=== PATIENT | male | born 1950 | race Caucasian/White ===

== ENCOUNTER 2019-11-10 11:07 | Emergency (ER) | payer MEDICARE, BC ==
--- NOTE | 2019-11-10 11:15 | EDM.PDOC ---
ED HPI GENERAL MEDICAL PROBLEM - General Chief Complaint: Head Injury Stated Complaint: possible concussion Time Seen by Provider: 11/10/19 11:07 Source of Information: Reports: Patient, Family (Sister), Other ([facility]). Denies: Old Records ([facility] EMR. No paper hospital chart available.) History Limitations: Reports: No Limitations - History of Present Illness INITIAL COMMENTS - FREE TEXT/NARRATIVE: Patient was brought to the emergency room via private automobile by his sister for evaluation of a possible head concussion. Note the patient was visiting his parents yesterday with the patient coming back from the bathroom at about 06:30 a.m. this morning. The lights were off and he tried to crawl onto his bed and accidentally hit the top of his head on the bedroom wall. No history of fall, although he has had some nonspecific dizziness, nausea, and 3 episodes of dry heaves this morning. The patient tried to take his medications this morning, however he had an emesis shortly thereafter. He denies any loss of consciousness , change in mental status, visual changes, change in his neurological status, or other complaints or injuries. He does have a cerebral neurostimulator secondary to his Parkinson's disease with the family concerned of a possible significant injury. The patient denies any chest pain/pressure, heart flutter, orthostasis, orthopnea, diaphoresis, paresthesias, recent decreased exercise tolerance, or any other anginal-type symptoms. No recent history of abdominal pain, heartburn, nausea, diarrhea, melena, gross hematochezia, or any food intolerance, including fatty foods, etc.. He denies any gross hematuria, colic, or other UTI symptoms. The patient also denies any recent fever, cough, wheezing , dyspnea, etc.. He complains of 1/10 superior head discomfort. Onset: Today, Sudden Onset Date: 11/10/19 Onset Time: 06:30 Duration: Improving Location: Reports: Head. Denies: Face, Neck, Chest, Abdomen, Back, Pelvis, Upper Extremity, Left, Upper Extremity, Right, Lower Extremity, Left, Lower Extremity, Right, Radiates to Quality: Reports: Ache, Same as Previous Episode Severity: Mild Improves with: Reports: None Worsens with: Reports: None Context: Reports: Trauma (As above). Denies: Sick Contact Associated Symptoms: Reports: Nausea/Vomiting. Denies: Confusion, Chest Pain, Cough, Diaphoresis, Fever/Chills, Headaches, Loss of Appetite, Malaise, Seizure , Shortness of Breath, Syncope, Weakness Treatments COMMUNITY OUTREACH SPECIALIST: Reports: Other (see below) (None) Head Pain Score (Numeric/FACES): 1 - Related Data Allergies Allergy/AdvReac Type Severity Reaction Status Date / Time adhesive tape Allergy Rash Verified 11/10/19 11:22 Home Meds: Home Meds Aspirin 81 mg PO BEDTIME 11/10/19 [History] Carbidopa/Levodopa [Sinemet 25-100 mg Tablet] 1 tab PO TID 11/10/19 [History] Ipratropium [Atrovent 0.06% Nasal [place]] 2 inh NASBOTH TID 11/10/19 [History] Meclizine [Antivert] 25 mg PO Q6H PRN #30 tab.chew 11/10/19 [Rx] Mirtazapine 30 mg PO BEDTIME 11/10/19 [History] Multivitamin with Minerals [Multiple Vitamin] 1 tab PO DAILY 11/10/19 [History] Rasagiline Mesylate 1 mg PO DAILY 11/10/19 [History] Simvastatin 40 mg PO DAILY 11/10/19 [History] Trihexyphenidyl [Artane] 2 mg PO TID 11/10/19 [History] allopurinoL [Zyloprim] 150 mg PO BID 11/10/19 [History] Past Medical History HEENT History: Reports: Impaired Vision, Other (See Below) Other HEENT History: Patient wears glasses. Cardiovascular History: Reports: Arrhythmia, High Cholesterol, Other (See Below) Other Cardiovascular History: Dyslipidemia. PACs, PVCs, with additional bigeminy , trigeminy, quadrigeminy. Respiratory History: Reports: COPD, Intubation, Previous, Sleep Apnea. Denies: Intubation, Difficult Gastrointestinal History: Reports: GERD, Other (See Below) Other Gastrointestinal History: Benign hepatic cyst. Genitourinary History: Reports: BPH Musculoskeletal History: Reports: Arthritis, Gout, Osteoarthritis Neurological History: Reports: Parkinson's, Other (See Below) Other Neuro History: Cognitive impairment. Right foot plantar neuroma in 2017. Endocrine/Metabolic History: Reports: Obesity/BMI 30+ - Past Surgical History Head Surgeries/Procedures: Reports: Other (See Below) Other Head Surgeries/Procedures: Placement of a deep brain stimulator on with battery replacement on 09/15/17 and 04/12/15. HEENT Surgical History: Reports: Oral Surgery (Teeth extractions) GI Surgical History: Reports: Colonoscopy, EGD, Hernia Repair/Other, Other (See Below) Other GI Surgeries/Procedures: Unknown hernia repair on 03/16/12. Colonoscopy on 06/04/12. EGD on 12/28/12 with apparent previous procedure. Neurological Surgical History: Reports: Other (See Below) Other Neurological Surgeries/Procedures: EMG with multiple chemo-denervations on 07/28/18. - Past Imaging History Past Imaging History: Reports: Cardiac Echo (Normal echocardiogram on 01/26/18 with ejection fraction of 60%.), CAT Scan (CT of the abdomen and pelvis on .), Holter Monitor (Positive Holter monitor study on 12/14/17 with results as above.), Sleep Study (Positive sleep study on 11/17/17.), Swallow Study ( Negative swallowing study on 05/05/18 with previous esophagram on 12/08/12.), Other (See Below) (EMG on 07/28/18.) Social & Family History - Tobacco Use Smoking Status *Q: Never Smoker Tobacco Use Within Last Twelve Months: No Used Tobacco, but Quit: No Smoking Cessation Information Provided To Patient: No Second Hand Smoke Exposure: No Second Hand Smoke Education Provided: No - Living Situation & Occupation Living situation: Reports: Alone ED ROS GENERAL - Review of Systems Review Of Systems: Comprehensive ROS is negative, except as noted in HPI. ED EXAM, HEAD INJURY - Physical Exam Exam: See Below Exam Limited By: No Limitations General Appearance: Alert, WD/WN, No Apparent Distress, Anxious (Moderate) Head: Normocephalic, Other (Stable by history postoperative skull deformity in the anterior frontal region with no evidence of acute injury, swelling, etc. Only equivocal minimal anterior mid parietal tenderness). No: Scalp Abrasions, Scalp Ecchymosis, Rubio's Sign, Sinus Tenderness, Facial Tenderness, Raccoon Eyes Nexus Criteria: No: Posterior, Midline Cervical Tenderness, Evidence of Intoxication, Altered Level of Consciousness, Focal Neurological Deficit, Painful Distraction Injuries Eyes: Bilateral Eye: EOMI, Normal Fundi, Normal Inspection (Wearing glasses, no nystagmus), PERRL Ears: Normal External Exam, Normal Canal, Hearing Grossly Normal, Normal TMs Nose: Normal Inspection, Normal Mucousa, No Blood Throat/Mouth: Normal Inspection, Normal Lips, Normal Teeth, Normal Gums, Normal Oropharynx, Normal Voice, No Airway Compromise Neck: Non-Tender, Full Range of Motion, Normal Alignment, Normal Inspection Respiratory: No Respiratory Distress, Lungs Clear, Normal Breath Sounds, No Accessory Muscle Use, Chest Non-Tender. No: Pleural Rub, Retractions Cardiovascular: Normal Peripheral Pulses, No Edema, No Gallop, No JVD, No Murmur , No Rub, Extra Beats (Regular rate). No: Gallop/S3, Gallop/S4, Friction Rub GI/Abdominal Exam: Normal Bowel Sounds, Soft, Non-Tender, No Organomegaly, No Distention, No Abnormal Bruit, No Mass, Pelvis Stable. No: Guarding (Male) Exam: Deferred Rectal (Males) Exam: Deferred Back Exam: Normal Inspection, Full Range of Motion. No: CVA Tenderness (L), CVA Tenderness (R), Muscle Spasm Extremities: Normal Inspection, Normal Range of Motion, Non-Tender, No Pedal Edema, Normal Capillary Refill. No: Niru's Sign Neurologic: production welding supervisor II-XII nml As Tested, Alert, Oriented x 3, Other (Negative Babinski's, finger to nose, and pronator rotation tests. No evidence of facial paresis, tongue deviation, orthostasis, etc.. Excellent reverse thought processes. Stable by patient and his sister's history mild cognitive defect and stable moderate resting tremor, rigidity, and cogwheeling). No: Normal Mood/ Affect (Moderate anxiety with borderline depression) Skin: Normal Color, Warm/Dry. No: Ecchymosis - Edmond Coma Score Best Eye Response (Nini): (4) Open Spontaneously Best Verbal Response (Edmond): (5) Oriented Best Motor Response (Edmond): (6) Obeys Commands Edmond Total: 15 Course - Vital Signs Last Recorded V/S: Last Vital Signs Temp 36.6 C 11/10/19 11:14 Pulse 73 11/10/19 12:19 Resp 19 11/10/19 12:19 BP 145/76 H 11/10/19 12:19 Pulse Ox 91 L 11/10/19 12:19 - Orders/Labs/Meds Orders: Active Orders 24 hr Category Date Time Status Cardiac Monitoring [RC] . DIRECTED Care 11/10/19 11:46 Active Peripheral IV Care [RC] . DIRECTED Care 11/10/19 11:35 Active Head wo Cont [CT] Stat Exams 11/10/19 11:17 Taken Obtain Past Medical Record [OM.PC] Routine Oth 11/10/19 11:17 Active Peripheral IV Insertion Adult [OM.PC] Routine Oth 11/10/19 11:35 Ordered Meds: Medications Discontinued Medications Generic Name Dose Route Start Last Admin Trade Name Freq PRN Reason Stop Dose Admin Ondansetron HCl 4 mg 11/10/19 11:35 11/10/19 11:44 Zofran IVPUSH 11/10/19 11:36 4 mg ONETIME ONE Administration Ondansetron HCl 4 mg 11/10/19 12:07 11/10/19 12:09 Zofran IVPUSH 11/10/19 12:08 4 mg ONETIME ONE Administration Sodium Chloride 10 ml 11/10/19 11:35 11/10/19 12:09 Saline Flush FLUSH 10 ml ASDIRECTED PRN Administration Keep Vein Open - Radiology Interpretation Free Text/Narrative:: shank burnisher shows normal sinus rhythm with only occasional PACs with aberrant conduction. Telephone consultation at 11:54 hours with preliminary verbal report of CT scan of the head without contrast. No acute changes including fracture, CVA, etc. CT Results Date: 11/10/19 CT Results Time: 11:54 Departure - Departure Time of Disposition: 12:40 Disposition: Home, Self-Care 01 Condition: Good Clinical Impression: Parkinsons disease, PAC (premature atrial contraction), Mixed anxiety depressive disorder Concussion Qualifiers: Encounter type: initial encounter Loss of consciousness presence/duration: without LOC Qualified Code(s): S06.0X0A - Concussion without loss of consciousness, initial encounter Hyperlipidemia Qualifiers: Hyperlipidemia type: unspecified Qualified Code(s): E78.5 - Hyperlipidemia, unspecified Osteoarthritis Qualifiers: Osteoarthritis location: multiple joints Osteoarthritis type: primary Qualified Code(s): M15.0 - Primary generalized (osteo)arthritis COPD (chronic obstructive pulmonary disease) Qualifiers: COPD type: emphysema Emphysema type: panlobular Qualified Code(s): J43.1 - Panlobular emphysema - Discharge Information *PRESCRIPTION DRUG MONITORING PROGRAM REVIEWED*: Not Applicable *COPY OF PRESCRIPTION DRUG MONITORING REPORT IN PATIENT FRACISCO: Not Applicable Prescriptions: Meclizine [Antivert] 25 mg PO Q6H PRN #30 tab.chew PRN Reason: Dizziness Instructions: Concussion, Adult, [id number] Referrals: Melissa York MD [Primary Care Provider] - Forms: ED Department Discharge Additional Instructions: 1. Follow up with your regular provider in 10-14 days as needed, if symptoms persist. Bring these discharge instructions with you to that visit.. 2. Head precautions as directed-see form. 3. Continue to observe your blood pressures closely by your regular provider 4. Activity as tolerated with strict fall precautions, including regular walker use 5. Immediately after this visit verify that your cellular telephone's voicemail has been activated and is empty. Also verify that your home telephone 's answering machine is operating properly and has space to receive messages. Note that it is sometimes necessary for us to be able to contact you at a later date to discuss your medical care. 6. Please remember that we are ALWAYS here for you and want to answer any questions you may have. Feel free to call the hospital any time and we call you back NEL[place]. 7. Sedation precautions with meclizine as discussed. Sepsis Event Note - Focused Exam Vital Signs: Vital Signs Temp Pulse Resp BP Pulse Ox 11/10/19 12:19 73 19 145/76 H 91 L 11/10/19 11:57 74 18 138/64 91 L 11/10/19 11:28 72 163/70 H 94 L 11/10/19 11:14 36.6 C 66 20 162/82 H 95 Date Exam was Performed: 11/10/19 Time Exam was Performed: 15:58 - Problem List & Annotations (1) Concussion SNOMED Code(s): 927973430 Code(s): S06.0X9A - CONCUSSION W LOSS OF CONSCIOUSNESS OF UNSP DURATION, INIT Status: Acute Priority: High Onset Date: 11/10/19 Annotation/ Comment:: Note mild persistent dizziness prior to discharge despite 2 doses of Zofran in the emergency room. Neurological exam is normal with exception of his Parkinson's disease. Head precautions given. Sedation precautions were given concerning possible further when necessary meclizine use. Close follow-up of his blood pressures and neurological status by his regular providers in [place] with patient living in [place]. Qualifiers: Encounter type: initial encounter Loss of consciousness presence/duration: without LOC Qualified Code(s): S06.0X0A - Concussion without loss of consciousness, initial encounter (2) COPD (chronic obstructive pulmonary disease) SNOMED Code(s): 27823312 Code(s): J44.9 - CHRONIC OBSTRUCTIVE PULMONARY DISEASE, UNSPECIFIED Status : Chronic Priority: Medium Annotation/Comment:: No recent fever or bronchitic type symptoms. Note history of sleep apnea. Qualifiers: COPD type: emphysema Emphysema type: panlobular Qualified Code(s): J43.1 - Panlobular emphysema (3) Hyperlipidemia SNOMED Code(s): 36098995 Code(s): E78.5 - HYPERLIPIDEMIA, UNSPECIFIED Status: Chronic Priority: Medium Annotation/Comment:: Currently under therapy. Qualifiers: Hyperlipidemia type: unspecified Qualified Code(s): E78.5 - Hyperlipidemia , unspecified (4) Osteoarthritis SNOMED Code(s): 860740329 Code(s): M19.90 - UNSPECIFIED OSTEOARTHRITIS, UNSPECIFIED SITE Status: Chronic Priority: Medium Annotation/Comment:: Stable by history with no recent gout attacks. Qualifiers: Osteoarthritis location: multiple joints Osteoarthritis type: primary Qualified Code(s): M15.0 - Primary generalized (osteo)arthritis (5) PAC (premature atrial contraction) SNOMED Code(s): 057652227 Code(s): I49.1 - ATRIAL PREMATURE DEPOLARIZATION Status: Chronic Priority : Medium Annotation/Comment:: History of PACs, PVCs, etc. as above with mild occasional PACs with mild aberrant conduction nonsymptomatic at this time. No chest pain or anginal type symptoms. Continue to observe closely by his regular providers. (6) Parkinsons disease SNOMED Code(s): 95760673 Code(s): G20 - PARKINSON'S DISEASE Status: Chronic Priority: Medium Annotation/Comment:: Stable by patient history. (7) Mixed anxiety depressive disorder SNOMED Code(s): 083927167 Code(s): F41.8 - OTHER SPECIFIED ANXIETY DISORDERS Status: Chronic Priority: Medium Annotation/Comment:: Moderate control with no current medical therapy. Observe closely by his regular providers. (8) Elevated blood pressure reading SNOMED Code(s): 98787184 Code(s): R03.0 - ELEVATED BLOOD-PRESSURE READING, W/O DIAGNOSIS OF HTN Status: Acute Priority: Medium Onset Date: 11/10/19 Annotation/Comment:: No history of hypertension or current medical therapy. Anxiety component. Observe for now. Closely follow by his regular provider. - Problem List Review Problem List Initiated/Reviewed/Updated: Yes - My Orders Last 24 Hours: My Active Orders 11/10/19 11:17 Head wo Cont [CT] Stat Obtain Past Medical Record [OM.PC] Routine 11/10/19 11:35 Peripheral IV Care [RC] . DIRECTED Peripheral IV Insertion Adult [OM.PC] Routine 11/10/19 11:46 Cardiac Monitoring [RC] . DIRECTED - Assessment/Plan Last 24 Hours: My Active Orders 11/10/19 11:17 Head wo Cont [CT] Stat Obtain Past Medical Record [OM.PC] Routine 11/10/19 11:35 Peripheral IV Care [RC] . DIRECTED Peripheral IV Insertion Adult [OM.PC] Routine 11/10/19 11:46 Cardiac Monitoring [RC] . DIRECTED Assessment:: As above. Plan: As above. Extensive precautions were given to the patient and his sister, who are in agreement with the treatment plan. Extensive precautions were given to the patient, who is in agreement with the treatment plan.
[2019-11-10] MEDS ORDERED: Ondansetron 4 MG/2 ML SDV IVPUSH ONE ×2 (11:35→12:07)
[2019-11-10] MEDS: Sodium Chloride 0.9% 10 ML Syringe FLUSH PRN ×2 (11:45→12:09)
== END 2019-11-10 12:40 | disposition home or self-care (01) ==
LOC: LL.ED 11:07
DX: S06.0X0A Concussion without loss of consciousness, initial encounter (principal); E78.5 Hyperlipidemia, unspecified; M15.0 Primary generalized (osteo)arthritis; J44.9 Chronic obstructive pulmonary disease, unspecified; G20 Parkinson's disease; I49.1 Atrial premature depolarization; F41.8 Other specified anxiety disorders; E66.9 Obesity, unspecified; M10.9 Gout, unspecified; Z68.26 Body mass index [BMI] 26.0-26.9, adult; E78.00 Pure hypercholesterolemia, unspecified; J43.1 Panlobular emphysema; Z79.899 Other long term (current) drug therapy; Z91.09 Other allergy status, other than to drugs and biological substances; Z79.82 Long term (current) use of aspirin
CPT/HCPCS: 70450; 96374; 99284-25; J2405